=== PATIENT | female | born 1940 | race Caucasian/White ===

== ENCOUNTER 2019-03-16 20:50 | Emergency (ER) | payer MEDICARE, OTHER ==
[2019-03-16] MEDS ORDERED: Octyl 2-Cyanoacrylate 1 Tube TOP ONE (20:57)
--- NOTE | 2019-03-16 21:06 | EDM.PDOC ---
ED HPI GENERAL MEDICAL PROBLEM - General Chief Complaint: Trauma Stated Complaint: HEAD INJURY Time Seen by Provider: 03/16/19 20:55 Source of Information: Reports: Patient History Limitations: Reports: No Limitations - History of Present Illness INITIAL COMMENTS - FREE TEXT/NARRATIVE: HISTORY AND PHYSICAL: Trauma alert was called upon patient arrival she takes an aspirin daily. Dr Mejía involved in patient care History of present illness: Patient is a 78 -year-old female who presents to the emergency room with complaints of a standing height fall. She states that she was walking and holding her grandson when she wasn't paying attention and slipped and fell hitting the right side of her head. She is currently complaining of right shoulder pain and a laceration to the right upper scalp. She denies any loss of consciousness. Patient is ambulatory into the emergency room and does have her right upper extremity guarded in towards her body. Review of systems: As per history of present illness and below otherwise all systems reviewed and negative. Past medical history: As per history of present illness and as reviewed below otherwise noncontributory. Surgical history: As per history of present illness and as reviewed below otherwise noncontributory. Social history: See social history for further information Family history: As per history of present illness and as reviewed below otherwise noncontributory. Physical exam: General: Well developed and well nourished 78-year-old female. Alert and oriented. Nontoxic appearing and in no acute distress. HEENT: Soft tissue swelling and 1 cm superficial laceration to the right upper scalp with mild tenderness, normocephalic, pupils equal and reactive bilaterally , negative for conjunctival pallor or scleral icterus, mucous membranes moist, TMs normal bilaterally, throat clear, neck supple, nontender, trachea midline. No drooling or trismus noted. No meningeal signs. No hot potato voice noted. Lungs: Clear to auscultation, breath sounds equal bilaterally, chest nontender. Heart: S1S2, regular rate and rhythm without overt murmur Abdomen: Soft, nondistended, nontender. Negative for masses or hepatosplenomegaly. Negative for costovertebral tenderness. Pelvis: Stable nontender. Skin: Soft tissue swelling and 1 cm superficial laceration to the right upper scalp. Otherwise skin is intact, warm, dry. No lesions or rashes noted. C-spine/Back: No pinpoint vertebral tenderness upon palpation. No crepitus, step -offs or obvious deformities. Patient is ambulatory into the emergency room without difficulty or deficit. Able to rock back on heels and walk on toes. Denies any urinary or fecal incontinence. Denies any numbness, tingling or saddle paresthesia. Extremities: Limited range of motion of the right shoulder. Pain and soft tissue swelling noted at the right shoulder girdle. Otherwise moves all extremities per self without difficulty or deficits. Neurovascular unremarkable. Neuro: Awake, alert, oriented. Cranial nerves II through XII unremarkable. Cerebellum unremarkable. Motor and sensory unremarkable throughout. Exam nonfocal. Notes: X-ray of the shoulder, chest and pelvis are negative. Negative head CT. CT of the cervical spine shows no acute findings, some multi degenerative changes are noted. Wound care was provided. Dermabond was applied over the superficial laceration. All findings were shared with the patient. Supportive care measures were reviewed and discussed. Voices understanding and is agreeable to plan of care. Denies any further questions or concerns at this time. Diagnostics: Head and cervical spine CT, right shoulder x-ray, 1 view chest, one view pelvis Therapeutics: Wound care, Dermabond, sling Prescription: None Impression: Fall Laceration Head injury Right shoulder injury Plan: 1. Please review and follow the head injury instructions that we discussed in her printed in your discharge packet. 2. Limit any physical activities and follow cognitive rest (decrease screen time , reading, tv, etc..) over the next 24 hours pending resolution of symptoms. 3. Tylenol and/or ibuprofen as needed for pain management. 4. Rest and ice the right shoulder. Use the sling for comfort purposes. Follow- up with the orthopedic provider next week as we discussed. 5. Keep the skin clean and dry. The Dermabond will fall off on its own. Please do not take this. Continue to monitor for signs of improvement. 6. Follow-up with your primary care provider as we discussed. Return to the ED as needed and as discussed. Definitive disposition and diagnosis as appropriate pending reevaluation and review of above. Right Shoulder Pain Score (Numeric/FACES): 8 - Related Data Allergies Allergy/AdvReac Type Severity Reaction Status Date / Time No Known Allergies Allergy Verified 05/04/18 09:45 Home Meds: Home Meds Levothyroxine 150 mcg PO DAILY 05/04/18 [History] Metoprolol/Hydrochlorothiazide [Metoprolol-HCTZ 50-25 MG] 0.5 tab PO DAILY 05/04 [History] Aspirin 81 mg PO DAILY 03/16/19 [History] Past Medical History HEENT History: Reports: Impaired Vision, Other (See Below) Other HEENT History: Wears glasses Cardiovascular History: Reports: Hypertension Respiratory History: Reports: None Gastrointestinal History: Reports: None Genitourinary History: Reports: None 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 Musculoskeletal History: Reports: None Neurological History: Reports: None Psychiatric History: Reports: None Endocrine/Metabolic History: Reports: Hypothyroidism Hematologic History: Reports: None Immunologic History: Reports: None Oncologic (Cancer) History: Reports: None Dermatologic History: Reports: None - Infectious Disease History Infectious Disease History: Reports: Chicken Pox, Measles, Mumps - Past Surgical History Head Surgeries/Procedures: Reports: None HEENT Surgical History: Reports: None Cardiovascular Surgical History: Reports: None Respiratory Surgical History: Reports: None GI Surgical History: Reports: None Female Surgical History: Reports: None Endocrine Surgical History: Reports: None Neurological Surgical History: Reports: None Musculoskeletal Surgical History: Reports: None Oncologic Surgical History: Reports: None Dermatological Surgical History: Reports: None Social & Family History - Family History Family Medical History: Noncontributory - Caffeine Use Caffeine Use: Reports: Coffee, Soda Review of Systems - Review of Systems Review Of Systems: ROS reveals no pertinent complaints other than HPI. ED EXAM, GENERAL - Physical Exam Exam: See Below (See dictation) Course - Vital Signs Last Recorded V/S: Last Vital Signs Temp 98.2 F 03/16/19 21:00 Pulse 92 03/16/19 21:00 Resp 16 03/16/19 21:00 BP 155/114 H 03/16/19 21:00 Pulse Ox 94 L 03/16/19 21:00 - Orders/Labs/Meds Orders: Active Orders 24 hr Category Date Time Status EKG Documentation Completion [RC] STAT Care 03/16/19 21:37 Active DME for Discharge [COMM] Stat Oth 03/16/19 21:38 Ordered Meds: Medications Discontinued Medications Generic Name Dose Route Start Last Admin Trade Name Freq PRN Reason Stop Dose Admin Octyl Cyanoacrylate 1 applic 03/16/19 20:57 03/16/19 21:45 Dermabond Advance TOP 03/16/19 20:58 1 applic ONETIME ONE Administration Tramadol HCl 50 mg 03/16/19 21:46 Ultram PO 03/16/19 21:47 ONETIME ONE Departure - Departure Time of Disposition: 21:48 Disposition: Home, Self-Care 01 Clinical Impression: Laceration Head injury Qualifiers: Encounter type: initial encounter Qualified Code(s): S09.90XA - Unspecified injury of head, initial encounter Fall Qualifiers: Encounter type: initial encounter Qualified Code(s): W19.XXXA - Unspecified fall, initial encounter Right shoulder injury Qualifiers: Encounter type: initial encounter Qualified Code(s): S49.91XA - Unspecified injury of right shoulder and upper arm, initial encounter - Discharge Information Instructions: Head Injury, Adult, [id number] Referrals: PCP,Unknown [Primary Care Provider] - Forms: ED Department Discharge Additional Instructions: The following information is given to patients seen in the emergency department who are being discharged to home. This information is to outline your options for follow-up care. We provide all patients seen in our emergency department with a follow-up referral. The need for follow-up, as well as the timing and circumstances, are variable depending upon the specifics of your emergency department visit. If you don't have a primary care physician on staff, we will provide you with a referral. We always advise you to contact your personal physician following an emergency department visit to inform them of the circumstance of the visit and for follow-up with them and/or the need for any referrals to a consulting specialist. The emergency department will also refer you to a specialist when appropriate. This referral assures that you have the opportunity for follow-up care with a specialist. All of these measure are taken in an effort to provide you with optimal care, which includes your follow-up. Under all circumstances we always encourage you to contact your private physician who remains a resource for coordinating your care. When calling for follow-up care, please make the office aware that this follow-up is from your recent emergency room visit. If for any reason you are refused follow-up, please contact the [facility] Emergency Department at and asked to speak to the emergency department charge nurse. [facility] [address] [employer], [place] [address], [place] [address] [facility] [address] [place] [address] 1. Please review and follow the head injury instructions that we discussed in her printed in your discharge packet. 2. Limit any physical activities and follow cognitive rest (decrease screen time , reading, tv, etc..) over the next 24 hours pending resolution of symptoms. 3. Tylenol and/or ibuprofen as needed for pain management. 4. Rest and ice the right shoulder. Use the sling for comfort purposes. Follow- up with the orthopedic provider next week as we discussed. 5. Keep the skin clean and dry. The Dermabond will fall off on its own. Please do not take this. Continue to monitor for signs of improvement. 6. Follow-up with your primary care provider as we discussed. Return to the ED as needed and as discussed.. - My Orders Last 24 Hours: My Active Orders 03/16/19 21:37 EKG Documentation Completion [RC] STAT 03/16/19 21:38 DME for Discharge [COMM] Stat - Assessment/Plan Last 24 Hours: My Active Orders 03/16/19 21:37 EKG Documentation Completion [RC] STAT 03/16/19 21:38 DME for Discharge [COMM] Stat
--- NOTE | 2019-03-16 21:28 | CT ---
INDICATION: Fall TECHNIQUE: CT cervical spine without contrast. COMPARISON: None FINDINGS: Vertebral alignment: Alignment is normal. Vertebrae: There are no fractures or suspicious bony lesions. Discs and facet joints: Disc multilevel degenerative changes. Extraspinal findings: Prevertebral soft tissues, visualized airway, and visualized lungs are unremarkable. The visualized portions of the ascending aorta are at the upper limits of normal measuring 4.0 centimeters in the AP dimension. IMPRESSION: No evidence of acute cervical spine trauma. Multilevel degenerative changes. The visualized portions of the ascending aorta are at the upper limits of normal measuring 4.0 centimeters in the AP dimension. Dictated by Singh Askew MD @ 03/16/2019 9:27:19 PM Please note that all CT scans at this facility use dose modulation, iterative reconstruction, and/or weight-based dosing when appropriate to reduce radiation dose to as low as reasonably achievable. Dictated by: Singh Askew MD @ 03/16/2019 21:27:25 (Electronically Signed)
--- NOTE | 2019-03-16 21:30 | CR ---
INDICATION: fall TECHNIQUE: Chest 1 view. COMPARISON: None. FINDINGS: Cardiovascular and mediastinum: Heart size and vasculature are normal in caliber and appearance. Mediastinum is within normal limits. Lungs and pleural space: Lungs are clear. No sign of infiltrate or mass. No sign of pleural effusion. No pneumothorax. Bones and soft tissues: No significant findings. IMPRESSION: Unremarkable chest. Dictated by: Singh Askew MD @ 03/16/2019 21:30:09 (Electronically Signed)
--- NOTE | 2019-03-16 21:34 | CR ---
INDICATION: fall TECHNIQUE: Right shoulder 2 views COMPARISON: None. FINDINGS: Bones: Alignment is normal. No fractures or bone lesions. Joint spaces: Unremarkable. Soft tissues: Unremarkable. IMPRESSION: No evidence of acute trauma.. Dictated by: Singh Askew MD @ 03/16/2019 21:32:37 (Electronically Signed)
--- NOTE | 2019-03-16 21:39 | CR ---
INDICATION: Fall TECHNIQUE: COMPARISON: None FINDINGS: Bones: Alignment is normal. No fractures or bone lesions. Joint spaces: Degenerative changes involving the left SI joint. Soft tissues: Unremarkable. IMPRESSION: No evidence of acute trauma. Dictated by Singh Askew MD @ 03/16/2019 9:37:19 PM Dictated by: Singh Askew MD @ 03/16/2019 21:37:26 (Electronically Signed)
--- NOTE | 2019-03-16 21:43 | CT ---
INDICATION: On blood thinners TECHNIQUE: CT head without contrast. COMPARISON: None FINDINGS: CSF spaces: Within normal limits for age. Brain parenchyma: The ji-white differentiation is normal. No sign of mass, hemorrhage, or midline shift. Skull base and calvarium: The visualized paranasal sinuses and mastoid air cells demonstrate no acute or significant findings. The visualized orbits are grossly unremarkable. No skull fractures. IMPRESSION: Atraumatic appearance of brain, specifically no evidence of acute intracranial trauma. Dictated by Singh Askew MD @ 03/16/2019 9:41:33 PM Please note that all CT scans at this facility use dose modulation, iterative reconstruction, and/or weight-based dosing when appropriate to reduce radiation dose to as low as reasonably achievable. Dictated by: Singh Askew MD @ 03/16/2019 21:41:39 (Electronically Signed)
[2019-03-16] MEDS ORDERED: traMADol 50 MG Tab PO ONE (21:46)
== END 2019-03-16 22:04 | disposition home or self-care (01) ==
LOC: MW.ED 20:50
DX: S01.01XA Laceration without foreign body of scalp, initial encounter (principal); S49.91XA Unspecified injury of right shoulder and upper arm, initial encounter; Z79.82 Long term (current) use of aspirin; W01.198A Fall on same level from slipping, tripping and stumbling with subsequent striking against other object, initial encounter
CPT/HCPCS: 12001; 70450; 71045; 72125; 72170; 73030; 93005; 99284; A9270